=== PATIENT | female | born 1980 | race Caucasian/White ===

== ENCOUNTER 2019-06-28 06:14 | Day surgery (SDC) | payer OTHER ==
[~2019-06-28] VITALS: Ht 152.4 cm; Wt 72.5 kg
[~2019-06-28 06:14] MED LIST: BUPIVACAINE-EPI 0.25%-1:200000 MPF 30 ML VIAL. ONE; CROM13SP3 NS; IBUP200C9 PO; MELATONIN PO; NEOMY/BACITR/POLYMYXIN OINT PACKET. TP ONE; THYR60TA PO
[2019-06-28] MEDS ORDERED: HYDROmorphone 2 MG/ML VIAL IV PRN (07:00)
[2019-06-28] MEDS ORDERED: ONDANSETRON PF 4 MG/2 ML VIAL. IV PRN (07:00)
[2019-06-28] MEDS ORDERED: PROCHLORPERAZINE 10 MG/2 ML VIAL. IV PRN (07:00)
[2019-06-28] MEDS ORDERED: ACETAMINOPHEN 500 MG TABLET PO ONE (07:00)
[2019-06-28] MEDS ORDERED: fentaNYL PF VIAL 100 MCG/2 ML VIAL IV PRN ×2 (07:00)
[2019-06-28] MEDS ORDERED: MORPHINE SULFATE 2 MG/ML VIAL. IV PRN (07:00)
[2019-06-28] MEDS ORDERED: IV RINGERS,LACTATED 1000ML 1,000 ML IV SCH (07:00)
[2019-06-28] MEDS ORDERED: NEOMY/BACITR/POLYMYXIN OINT PACKET. TP ONE (07:16)
[2019-06-28] MEDS ORDERED: fentaNYL PF VIAL 100 MCG/2 ML VIAL ONE (07:43)
[2019-06-28] MEDS ORDERED: PROPOFOL 20 ML IV ONE (07:43)
[2019-06-28] MEDS ORDERED: LIDOCAINE 2% PF 5 ML VIAL. ONE (07:43)
[2019-06-28] MEDS ORDERED: MIDAZOLAM HCL/PF 2 MG/2 ML VIAL. ONE (07:43)
[2019-06-28] MEDS ORDERED: DEXAMETHASONE SOD PHOS 4 MG/ML VIAL ONE (07:43)
[2019-06-28] MEDS ORDERED: ONDANSETRON PF 4 MG/2 ML VIAL. ONE (07:43)
[2019-06-28] MEDS ORDERED: KETAMINE HCL IN NACL, ISO-OSM 50 MG/5 ML SYRINGE ONE (08:10)
[2019-06-28] MEDS ORDERED: KETOROLAC 30 MG/ML INJ FOR OR. INJ ONE (08:10)
[2019-06-28] MEDS ORDERED: SEVOFLURANE 31 TO 60 MINUTES. IH ONE (08:14)
--- NOTE | 2019-06-28 08:22 | PDOC4 ---
Operative Note Operative Note Date: 06/28/2019 Preoperative diagnosis: External and internal hemorrhoids Postoperative diagnosis: Same Procedure: Excision of external and internal hemorrhoids �2 Surgeon: Juan Specimen: Hemorrhoids Dictation: Patient is 39-year-old female who's had issues with hemorrhoids ever since her delivery of her baby several years ago with bleeding pain swelling. Procedure of hemorrhoidectomy was explained to the patient in detail all risks benefits were also discussed including bleeding infection alternatives to this procedure also discussed with the patient who seemed to understand and gave both verbal and written consent to have the procedure performed. Patient was taken to the operating room placed in supine position general anesthesia was initiated once patient was sleep and intubated her position was changed to lithotomy po sitioning and her peritoneum was prepped and draped usual sterile fashion using Betadine scrub and solution. There were 2 moderate sized hemorrhoids external as well as internal on the right side of the anus as well as the 6 o'clock position. Quarter percent Marcaine with epinephrine was injected around the hemorrhoids hemorrhoids were grasped with Allis clamp and excised using the Harmonic scalpel hemostasis was deemed to be appropriate and the wound was dressed with antibiotic ointment ABD pad and mesh panties. Patient was repositioned supine positioning and awakened and extubated in the operating room taken to recovery in stable condition all sponge instrument needle counts listed as correct estimated blood loss 5 mL NEYDA DHILLON MD Jun 28, 2019 08:22
--- NOTE | 2019-06-28 08:23 | DISCH ---
DISCHARGE INSTRUCTIONS Condition on Discharge Condition on Discharge: Stable Activity After Discharge Activity Instructions for Disc: Avoid exertion Diet after Discharge Diet after Discharge: Regular Wound Incision Care Other wound/incision instructi: May shower in 24 hours Contacting the DRChester after DC Call your doctor for: If your condition worsens Follow-Up Follow up with: Juan in 2 weeks NEYDA DHILLON MD Jun 28, 2019 08:23
[2019-06-28] MEDS ORDERED: OXYC1TAB15 PO (08:29)
[2019-06-28] MEDS ORDERED: oxyCODONE/APAP 5/325 1 TAB TABLET PO ONE ×2 (08:30)
[2019-06-28 09:01] VITALS: BP 115/78
--- NOTE | 2019-07-01 18:06 | PATHOLOGY ---
[place] Accession Number: [id number] . 01 Material submitted: . hemorrhoids - HEMORRHOIDS . 01 Clinical history: . Hemorrhoids . 02 Diagnosis: Segments of anal skin and anorectal mucosa and underlying fibromuscular tissue, hemorrhoidectomy: - Hemorrhoids, with focal chronic inflammation. . (JPM:mml; 07/01/2019) QLM/07/01/2019 . 02 Electronically signed: . Kole Orozco MD, Pathologist NPI- [id number] . 01 Gross description: . Received in formalin labeled "Junn, Bev, hemorrhoids," are 2 segments of case-pink epithelial covered tissue measuring 3.3 x 2.0 x 1.9 cm in aggregate dimensions and ranging from 2.0 x 1.5 x 1.4 to 2.3 x 1.7 x 1.6 in maximum dimensions. The epithelial surfaces appear intact, without grossly apparent lesions. On cut section, the subepithelial tissue has a highly vascular appearance. [employer] tissue is submitted in cassette A1 and A2. (TSD; 06/28/2019) TOB/TOB . 02 Pathologist provided ICD-10: K64.9 . 02 CPT . 139703 Specimen Comment: A courtesy copy of this report has been sent to Specimen Comment: [phone]. Specimen Comment: Report sent to Performed at: 01 [facility] [address] [facility] [address], [place] [id number] MD Moshe Hannon MD Phone: [phone] Performed at: [facility] [address] [place], [place] [id number] MD Kole Orozco MD Phone: [phone]
== END 2019-06-28 09:16 | disposition home or self-care (01) ==
LOC: SURG 06:14
PROVIDERS: ATTEND Surgery
DX: K64.8 Other hemorrhoids (principal); K64.4 Residual hemorrhoidal skin tags; E03.9 Hypothyroidism, unspecified; Z98.890 Other specified postprocedural states
CPT/HCPCS: 46260; 81025; 88304; A7015; J0690; J1100; J1885; J2001; J2250; J2405; J2704; J3010; A4461